=== PATIENT | female | born 1980 | race Caucasian/White ===

== ENCOUNTER 2021-08-25 08:46 | Emergency (ER) | payer OTHER, SELFPAY ==
[2021-08-25 08:53] VITALS: BP 114/78; PULSE 68; RESP 18; TEMP 35.7; O2SAT 98; BMI 49.6
[2021-08-25 09:21] VITALS: BP 128/93; PULSE 72; RESP 16; TEMP 36.6; O2SAT 97
[2021-08-25] MEDS: 0.9 % Sodium Chloride 1,000 ML 999 ML IV ×2 (09:22→12:12)
--- NOTE | 2021-08-25 09:23 | ED_ITS ---
HPI - Nausea/Vomiting/Diarrhea General Chief complaint: Arrhythmia/Palpitations Stated complaint: vomiting Time Seen by Provider: 08/25/21 09:04 Source: patient Mode of arrival: ambulatory Limitations: no limitations History of Present Illness HPI Narrative: 41-year-old female previously healthy here with complaints of vomiting since yesterday morning. No associated abdominal pain, diarrhea, urinary symptoms, fevers, chills. Patient tells me she came in today because she feels like she is dehydrated. She tells me she has had episodes of this in the past. She did recently travel from [place]. Fully vaccinated for COVID. Associated nausea: Yes Related Data Previous Rx's Medication Instructions Recorded ondansetron 4 mg disintegrating 4 mg PO Q6H PRN #10 tab 08/25/21 tablet Allergies Allergy/AdvReac Type Severity Reaction Status Date / Time No Known Allergies Allergy Unverified 08/01/20 16:12 [No Known Allergies*] Review of Systems Review of Systems: Yes all other systems are reviewed and are negative Constitutional: Constitutional: Reports no additional constitutional complaints, Denies body ache(s), Denies chills, Denies fever(s), Denies headache(s) and Denies weakness Eyes: Eyes: Reports no additional eye complaints and Denies change in vision ENT: Reports system reviewed and no additional complaints, except as documented, Denies dizziness, Denies headache(s), Denies nasal congestion, Denies nasal discharge and Denies neck pain Cardiovascular: Cardiovascular: Reports no additional cardiovascular complaints, Denies chest pain, Denies leg edema and Denies dyspnea Respiratory: Respiratory: Reports no additional respiratory complaints, Denies cough and Denies dyspnea Gastrointestinal: Gastrointestinal: Reports no additional gastrointestinal complaints, Denies abdominal pain, Denies diarrhea, Reports nausea and Reports vomiting Genitourinary: Genitourinary: Reports no additional female genitourinary complaints and Denies urinary incontinence Musculoskeletal: Musculoskeletal: Reports no additional musculoskeletal complaints, Denies back pain, Denies arthralgias, Denies joint swelling, Denies neck pain, Denies numbness and Denies tingling Integumentary/Breasts: Skin/Breast: Reports system reviewed and no additional complaints, except as docu and Denies rash Neurologic: Reports system reviewed and no additional complaints, except as documented, Denies Abnormal speech present, Denies dizziness, Denies headache(s), Denies numbness, Denies tingling and Denies weakness PMF Past Medical History Attestation statement: The following information was validated with the patient. Source: old records reviewed and nursing notes reviewed Social History Social History Patient Tobacco Use Status: Tobacco use Unknown Use of substances other than those prescribed or required for medical reasons: No Advance Directives: No Advance Directives Information Provided: No Physical Exam Vital Signs: Vital Signs: Last Vital Signs Temp 98 F 08/25/21 09:21 Pulse 60 08/25/21 12:03 Resp 16 08/25/21 12:03 BP 121/67 08/25/21 12:03 Pulse Ox 98 08/25/21 12:03 Body Mass Index 49.6 Const: General: cooperative, healthy appearing, comfortable and no acute distress Orientation/consciousness: patient oriented x3 Limitations: no limitations HENMT: Head: Yes normal to inspection Ears: hearing grossly normal bilaterally and TM's normal bilaterally General nose exam: Normal external nose present Face and sinus: Yes normal facial exam Mouth: Normal oral and palatal mucosa present Throat: Yes posterior oropharynx normal Eyes: General: appearance normal, both eyes and all related structures Pupils: Equal, round and reactive pupils present Neck: Neck: Yes normal visual inspection Chest: Chest palpation & inspection: normal inspection of the chest Resp: Effort & Inspection: normal respiratory effort Auscultation: clear to auscultation bilaterally Cardio: Rate: regular rate Rhythm: regular rhythm Peripheral pulses: Peripheral pulses 2+ throughout GI: Inspection: Yes normal to inspection Palpation (GI): Soft to palpation and nontender Auscultation: normal bowel sounds Back/Spine/Pelvis: Thoracic/Lumbar Spine: thoracic and lumbar spine normal to inspection Skin: General skin exam: no rashes or lesions noted Neuro: General: patient oriented x3, no focal motor deficits and normal sensation to monofilament Cranial nerves: Yes Equal, round and reactive pupils present Cognition (Neuro): normal cognition Speech: No Abnormal speech present Gait exam (Neuro): Normal gait present Motor exam (neuro): 5/5 motor strength present throughout Extrem: General: Yes normal to inspection, Yes no pedal edema and Yes no calf tenderness Course Course Course Narrative: 41-year-old female here with vomiting for the last 2 days. Feeling dehydrated today requesting IV fluids. History of similar episodes. No associated abdominal pain. Exam is benign Will check labs, UA, COVID screen. Will give 2 L normal saline and reassess. 1510-Labs unremarkable. UA negative. Patient tolerated saltine crackers, fiona miryam with no additional vomiting episodes. Reviewed worrisome signs and symptoms when to return to the emergency department. Comfortable discharge home. MDM - Nausea/Vomiting/Diarrhea Medical Records Attestation: I reviewed the patient's medical records. Lab Data Attestation: I reviewed the patient's lab results. Result diagrams: 08/25/21 09:43 08/25/21 09:43 Labs: Lab Results 08/25/21 08/25/21 08/25/21 Range/Units 09:43 09:43 09:43 WBC 8.2 (4.8-10.8) X10*3/uL RBC 4.61 (4.20-5.50) X10*6/uL Hgb 14.4 (12.0-16.0) g/dl Hct 43.3 (37-47) % MCV 93.9 (80-98) fL MCH 31.2 (27.0-33.0) pg MCHC 33.3 (31.0-35.0) g/dl RDW 14.1 (11.0-16.0) % Plt Count 307 (160-400) X10*3/uL MPV 9.4 (9.4-12.3) fL Immature Gran % (Auto) 0.4 (0.0-0.4) % Neut % (Auto) 68.0 (45-73) % Lymph % (Auto) 25.2 (20-40) % [place] % (Auto) 5.7 (2-11) % Eos % (Auto) 0.2 (0-4) % Baso % (Auto) 0.5 (0-2) % Lymph # (Auto) 2.1 (1.2-4.9) X10*3/uL [place] # (Auto) 0.5 (0.1-1.2) X10*3/uL Eos # (Auto) 0.0 (0.0-0.4) X10*3/uL Baso # (Auto) 0.0 (0.0-0.2) X10*3/uL Abs Immat Gran (auto) 0.03 (0.00-0.03) X10*3/uL Absolute Neuts (auto) 5.6 (2.0-8.3) X10*3/uL Absolute Nucleated RBC 0.000 (0.0-0.012) X10*3/uL Nucleated RBC % (auto) 0.0 (0.0-0.2) /100WBC Sodium 139 (135-145) mmol/L Potassium 3.9 (3.3-5.1) mmol/L Chloride 109 H (96-108) mmol/L Carbon Dioxide 22 (22-29) mmol/L Anion Gap 12 (12-20) BUN 9 (9-16) mg/dL Creatinine 1.02 (0.5-1.4) mg/dL Estim Creat Clear Calc 93.2 Estimated GFR 59 Random Glucose 112 (60-115) mg/dL Calcium 9.1 (8.4-10.2) mg/dL Total Bilirubin 0.7 (0.0-1.0) mg/dL Direct Bilirubin 0.2 (0.0-0.5) mg/dL AST 15 (5-31) U/L ALT 16 (0-31) U/L Alkaline Phosphatase 88 (39-117) U/L Total Protein 7.7 (6.5-8.0) g/dL Albumin 3.9 (3.5-5.0) g/dL Urine Color Urine Appearance Urine pH (5.0-8.0) Ur Specific [place] (1.005-1.025) Urine Protein (NEG-TRACE) MG/DL Urine Glucose (UA) (NEG) MG/DL Urine Ketones (NEG) MG/DL Urine Blood (NEG) Urine Nitrite (NEG) Ur Leukocyte Esterase (NEG) Urine RBC (0) /HPF Urine WBC (0-4) /HPF Ur Squamous Epith Cells /LPF Urine Bacteria /LPF Urine Mucus /LPF COVID-19 (ERASMO) Negative (Negative) COVID-19 Clin Com See Note 08/25/21 Range/Units 11:55 WBC (4.8-10.8) X10*3/uL RBC (4.20-5.50) X10*6/uL Hgb (12.0-16.0) g/dl Hct (37-47) % MCV (80-98) fL MCH (27.0-33.0) pg MCHC (31.0-35.0) g/dl RDW (11.0-16.0) % Plt Count (160-400) X10*3/uL MPV (9.4-12.3) fL Immature Gran % (Auto) (0.0-0.4) % Neut % (Auto) (45-73) % Lymph % (Auto) (20-40) % [place] % (Auto) (2-11) % Eos % (Auto) (0-4) % Baso % (Auto) (0-2) % Lymph # (Auto) (1.2-4.9) X10*3/uL [place] # (Auto) (0.1-1.2) X10*3/uL Eos # (Auto) (0.0-0.4) X10*3/uL Baso # (Auto) (0.0-0.2) X10*3/uL Abs Immat Gran (auto) (0.00-0.03) X10*3/uL Absolute Neuts (auto) (2.0-8.3) X10*3/uL Absolute Nucleated RBC (0.0-0.012) X10*3/uL Nucleated RBC % (auto) (0.0-0.2) /100WBC Sodium (135-145) mmol/L Potassium (3.3-5.1) mmol/L Chloride (96-108) mmol/L Carbon Dioxide (22-29) mmol/L Anion Gap (12-20) BUN (9-16) mg/dL Creatinine (0.5-1.4) mg/dL Estim Creat Clear Calc Estimated GFR Random Glucose (60-115) mg/dL Calcium (8.4-10.2) mg/dL Total Bilirubin (0.0-1.0) mg/dL Direct Bilirubin (0.0-0.5) mg/dL AST (5-31) U/L ALT (0-31) U/L Alkaline Phosphatase (39-117) U/L Total Protein (6.5-8.0) g/dL Albumin (3.5-5.0) g/dL Urine Color YELLOW Urine Appearance HAZY Urine pH 5.5 (5.0-8.0) Ur Specific [place] >= 1.030 H (1.005-1.025) Urine Protein TRACE (NEG-TRACE) MG/DL Urine Glucose (UA) NEG (NEG) MG/DL Urine Ketones 15 (NEG) MG/DL Urine Blood TRACE (NEG) Urine Nitrite NEG (NEG) Ur Leukocyte Esterase TRACE H (NEG) Urine RBC 0-2 (0) /HPF Urine WBC 1-4 (0-4) /HPF Ur Squamous Epith Cells 4+ /LPF Urine Bacteria 3+ /LPF Urine Mucus TRACE /LPF COVID-19 (ERASMO) (Negative) COVID-19 Clin Com Discharge Plan Discharge Clinical Impression: Vomiting Patient Disposition: Home, Self-Care Instructions: Acute Nausea and Vomiting (ED) Additional Instructions: Start with clear liquids then advance diet as tolerated Prescriptions: New ondansetron 4 mg tablet,disintegrating 4 mg PO Q6H PRN (Reason: nausea and vomiting) Qty: 10 RF: 0 Referrals: Physician,Unknown J [Primary Care Provider] - 2 days Interventions: ED Discharge Assessment Last Done: 08/25/21 15:00 Discharge Date/Time: 08/25/21 15:01
[2021-08-25 09:49] LABS: MANUAL DIFF FLAG NO
[2021-08-25 09:51] LABS: Basophils Percent Auto 0.5 % (0-2); Eosinophils Percent Auto 0.2 % (0-4); Hematocrit 43.3 % (37-47); Hemoglobin 14.4 g/dl (12.0-16.0); Imm Gran Abs Auto 0.03 X10*3/uL (0.00-0.03); Imm Gran Pct Auto 0.4 % (0.0-0.4); Lymphocytes Absolute Auto 2.1 X10*3/uL (1.2-4.9); Lymphocytes Percent Auto 25.2 % (20-40); Mean Corpuscular HGB Conc 33.3 g/dl (31.0-35.0); Mean Corpuscular Hemoglobin 31.2 pg (27.0-33.0); Mean Corpuscular Volume 93.9 fL (80-98); Mean Platelet Volume 9.4 fL (9.4-12.3); Monocytes Absolute Auto 0.5 X10*3/uL (0.1-1.2); Monocytes Percent Auto 5.7 % (2-11); Neutrophils Absolute Auto 5.6 X10*3/uL (2.0-8.3); Platelet Count 307 X10*3/uL (160-400); Red Blood Count 4.61 X10*6/uL (4.20-5.50); Red Cell Distribution Width 14.1 % (11.0-16.0); White Blood Count 8.2 X10*3/uL (4.8-10.8)
[2021-08-25 10:07] LABS: Alanine Aminotransferase 16 U/L (0-31); Albumin Level 3.9 g/dL (3.5-5.0); Alkaline Phosphatase 88 U/L (39-117); Anion Gap 12 (12-20); Aspartate Amino Transferase 15 U/L (5-31); Bilirubin Direct 0.2 mg/dL (0.0-0.5); Bilirubin Total 0.7 mg/dL (0.0-1.0); Blood Urea Nitrogen 9 mg/dL (9-16); Calcium 9.1 mg/dL (8.4-10.2); Carbon Dioxide 22 mmol/L (22-29); Chloride 109 mmol/L (96-108); Creatinine Clr Calc Pharmacy 93.2; Estimated Glomerular Filt Rate 59; Glucose Random 112 mg/dL (60-115); Potassium 3.9 mmol/L (3.3-5.1); Sodium 139 mmol/L (135-145); Total Protein 7.7 g/dL (6.5-8.0)
[2021-08-25 10:13] LABS: COVID-19 Test Negative (Negative); IDNOW Serial# 9DD0AD1C
[2021-08-25 12:03] VITALS: BP 121/67; PULSE 60; RESP 16; O2SAT 98
[2021-08-25 12:23] LABS: Appearance Urine HAZY; Color Urine YELLOW; Glucose Urine UA NEG (NEG); Leukocyte Esterase Urine TRACE (NEG); Nitrite Urine NEG (NEG); PH 5.5 (5.0-8.0); Specific Gravity - Urine >= 1.030 (1.005-1.025); UACC Culture Trigger YES; Urine Blood TRACE (NEG); Urine Ketones 15 MG/DL (NEG); Urine Protein TRACE MG/DL (NEG-TRACE)
[2021-08-25 12:32] LABS: Bacteria Urine 3+ /LPF; Mucus Urine TRACE /LPF; RBC Urine 0-2 /HPF (0); Squamous Epithelial Cell Urine 4+ /LPF
== END 2021-08-25 15:01 | disposition home or self-care (01) ==
PROVIDERS: Nurse Practitioner Family; Emergency Provider Emergency Medicine
DX: R11.10 Vomiting, unspecified (principal); Z20.822 Contact with and (suspected) exposure to COVID-19
CPT/HCPCS: 36415; 80048; 80076; 81001; 85025; 87086; 87635; 96360; 99284

== ENCOUNTER 2023-03-22 17:51 | Emergency (ER) | payer OTHER, SELFPAY ==
--- NOTE | ~2023-03-22 | XR_ITS ---
EXAMINATION: PELVIS AND RIGHT FEMUR, LUMBAR SPINE CLINICAL INFORMATION: Pain COMPARISON: None available. TECHNIQUE: 2 views of the pelvis and 2 additional views of the right hip, 3 views of the lumbar spine FINDINGS: The pelvis and hips appear unremarkable. No fractures or significant degenerative changes are present. There is a mild scoliosis of the lumbar spine convex to the right. Surgical clips are present in the right upper quadrant. Minimal degenerative changes are present in the spine with some minimal disc space narrowing at L4-L5 and L5-S1. XR/XR lumbar spine 2-3V IMPRESSION: No acute finding. Mild scoliosis and minimal degenerative changes in the spine.
--- NOTE | ~2023-03-22 | XR_ITS ---
EXAMINATION: PELVIS AND RIGHT FEMUR, LUMBAR SPINE CLINICAL INFORMATION: Pain COMPARISON: None available. TECHNIQUE: 2 views of the pelvis and 2 additional views of the right hip, 3 views of the lumbar spine FINDINGS: The pelvis and hips appear unremarkable. No fractures or significant degenerative changes are present. There is a mild scoliosis of the lumbar spine convex to the right. Surgical clips are present in the right upper quadrant. Minimal degenerative changes are present in the spine with some minimal disc space narrowing at L4-L5 and L5-S1. XR/XR hip RT min 2V IMPRESSION: No acute finding. Mild scoliosis and minimal degenerative changes in the spine.
[2023-03-22 18:32] VITALS: BP 118/81; PULSE 100; RESP 18; TEMP 36.7; O2SAT 96; BMI 48.7
--- NOTE | 2023-03-22 18:36 | ED.GENADULT ---
HPI - General Adult General Chief complaint: Extremity Problem <Bryn Aviles - Last Filed: 03/22/23 18:37> Stated complaint: sciatic pain for a month a half <Bryn Aviles - Last Filed: 03/22/23 18:37> Time Seen by Provider: 03/22/23 20:00 <Bryn Aviles - Last Filed: 03/22/23 18:37> Source: patient and family () <Maximiliano Patterson MD - Last Filed: 03/22/23 20:36> Mode of arrival: ambulatory <Maximiliano Patterson MD - Last Filed: 03/22/23 20:36> Limitations: no limitations <Maximiliano Patterson MD - Last Filed: 03/22/23 20:36> History of Present Illness HPI narrative: 42-year-old female came in for evaluation of low back pain and right hip pain. Symptoms started 2 months ago after a snowstorm and shoveling, pain persist for the past 2 months pain is localized to the low back and right hip area radiated down to the right leg, no weakness, complain of numbness in the whole entire right lower extremities, no urinary incontinence, no stool incontinence. PCP tried muscle relaxant with no relief patient also tried 2 courses of steroids in the past with no relief of symptoms. No fever, no chills, no history of drug abuse. <Maximiliano Patterson MD - Last Filed: 03/22/23 20:36> Related Data Home medications: Previous Rx's Medication Instructions Recorded ondansetron 4 mg disintegrating 4 mg PO Q6H PRN nausea and 08/25/21 tablet vomiting #10 tabs cyclobenzaprine 10 mg tablet 10 mg PO TID PRN muscle spasm #20 03/22/23 tabs oxycodone 5 mg tablet 5 mg PO Q8H PRN pain #20 tabs 03/22/23 prednisone 20 mg tablet 20 mg PO BID #10 tabs 03/22/23 <Bryn Aviles - Last Filed: 03/22/23 18:37> Allergies/adverse reactions: Allergies Allergy/AdvReac Type Severity Reaction Status Date / Time erythromycin base Allergy Rash Verified 03/22/23 18:36 <Bryn Aviles - Last Filed: 03/22/23 18:37> Review of Systems Review of Systems: All other systems are reviewed and are negative Constitutional: Reports as per HPI and Reports no additional constitutional complaints Eyes: Reports as per HPI and Reports no additional eye complaints Reports system reviewed and no additional complaints, except as documented Cardiovascular: Reports as per HPI and Reports no additional cardiovascular complaints Respiratory: Reports as per HPI and Reports no additional respiratory complaints Gastrointestinal: Reports as per HPI and Reports no additional gastrointestinal complaints Genitourinary: Reports no additional female genitourinary complaints Musculoskeletal: Reports no additional musculoskeletal complaints Skin/Breast: Reports system reviewed and no additional complaints, except as docu Psychiatric: Reports no additional psychiatric complaints Endocrine: Reports no additional endocrine complaints Hematologic/Lymphatic: Reports no additional hematologic/lymphatic complaints Allergic/Immunologic: Reports no additional allergic/immunologic complaints Reports system reviewed and no additional complaints, except as documented and Reports Abnormal speech present <Maximiliano Patterson MD - Last Filed: 03/22/23 20:36> [facility] Social History Social History: Social History Patient Tobacco Use Status: Tobacco use Unknown Advance Directives: No Advance Directives Information Provided: No <Bryn Aviles - Last Filed: 03/22/23 18:37> Physical Exam ED Vital Signs: Vital Signs - 24 hr 03/22/23 18:32 Temperature 98.1 F Pulse Rate 100 Respiratory Rate 18 Blood Pressure 118/81 Pulse Oximetry 96 Oxygen Delivery Method Room Air BMI result Body Mass Index 48.7 <Bryn Aviles - Last Filed: 03/22/23 18:37> Vital Signs - 24 hr 03/22/23 18:32 Temperature 98.1 F Pulse Rate 100 Respiratory Rate 18 Blood Pressure 118/81 Pulse Oximetry 96 Oxygen Delivery Method Room Air BMI result Body Mass Index 48.7 Vital signs have been reviewed as appeared to be correct. Blood pressure normal. Heart rate normal. Respiration rate normal. Temperature normal. Oxygen saturation normal. <Maximiliano Patterson MD - Last Filed: 03/22/23 20:36> Appearance: Alert. Oriented X3. No acute distress. Head: Normal external exam. Normocephalic. Atraumatic. No Higgins signs noted. No raccoon eyes noted Eyes: PERRLA. EOMI. Conjunctiva and sclera normal. Eyelids normal. ENT: TM's Normal. Pharynx normal. Uvula midline. Moist mucous membranes. No trismus noted. No drooling noted. No muffled voice noted. Neck: Normal inspection. Neck supple. FROM. No adenopathy. Thyroid Normal. No meningeal signs. No neck mass noted. CVS: Normal heart rate and rhythm. Heart sound normal. No murmurs noted. Pulses normal throughout. Respiratory: No respiratory distress. Painless inspiration. Breath sounds normal. No wheezes/rales/rhonchi noted. Chest nontender. No accessory muscle usage noted or decreased air movement noted. Abdomen: Soft and nontender. Bowel sounds normal in all 4 quadrants. No distention noted. No organomegaly noted. No visible injury noted. Back: No CVA tenderness. Full range of motion noted. Skin: Skin warm and dry. Normal skin color. Normal skin turgor. No rashes/lesions/lacerations noted. Extremities: No lower extremity edema. Extremities exhibit normal range of motion. Extremities nontender. Neuro: Oriented X 3. Cranial nerve exam: II-XII are grossly intact No motor deficit. No sensory deficit. Reflexes normal, perianal sensation intact. <Maximiliano Patterson MD - Last Filed: 03/22/23 20:36> Course Course Course Narrative: 42-year-old female presents for evaluation of her back/right hip pain that radiates down her right leg and ankle. Pain started 2 months ago after shoveling. Denies weakness but endorses numbness <Bryn Aviles - Last Filed: 03/22/23 18:37> Reevaluation(s) Reevaluation #1: Lumbar radiculopathy with no neurological deficit or urinary incontinence to suggest cauda equina syndrome. As discussed with the patient will start on short course of prednisone, analgesia, muscle relaxant, and follow-up with PCP to consider outpatient MRI. <Maximiliano Patterson MD - Last Filed: 03/22/23 20:36> Time: 20:30 <Maximiliano Patterson MD - Last Filed: 03/22/23 20:36> Medical Decision Making Differential Diagnosis Differential Diagnoses: The differential diagnosis associated with the presentation includes (Myofascial back pain, lumbar sprain, compression fracture, lumbar radiculopathy, cauda equina.) <Maximiliano Patterson MD - Last Filed: 03/22/23 20:36> Independent Interpretation I performed an independent interpretation of an: Plain X-Ray (Lumbar/right hip x-ray: No acute finding, mild scoliosis.) <Maximiliano Patterson MD - Last Filed: 03/22/23 20:36> Radiology Impression Discussion of test interpretation with radiology: I have reviewed the radiologist's reading. <Maximiliano Patterson MD - Last Filed: 03/22/23 20:36> Discharge Plan Discharge Clinical Impression: Lumbar radiculopathy, right <Bryn Aviles - Last Filed: 03/22/23 18:37> Patient Disposition: Home, Self-Care <Bryn Aviles - Last Filed: 03/22/23 18:37> Instructions: Lumbar Radiculopathy (ED) <Bryn Aviles - Last Filed: 03/22/23 18:37> Additional Instructions: Follow-up with your primary doctor, seek immediate medical attention if any urinary or stool incontinence, losing sensation in the anal area. <Bryn Aviles - Last Filed: 03/22/23 18:37> Prescriptions: New oxycodone 5 mg tablet 5 mg PO Q8H PRN (Reason: pain) Qty: 20 0RF Rx Instructions: Partial Fill upon patient request. prednisone 20 mg tablet 20 mg PO BID Qty: 10 0RF cyclobenzaprine 10 mg tablet 10 mg PO TID PRN (Reason: muscle spasm) Qty: 20 0RF No Action ondansetron 4 mg tablet,disintegrating 4 mg PO Q6H PRN (Reason: nausea and vomiting) Qty: 10 0RF <Bryn Aviles - Last Filed: 03/22/23 18:37>
[2023-03-22] MEDS: oxyCODONE HCl Immed Release 5 MG TABLET PO (20:35)
== END 2023-03-22 20:40 | disposition home or self-care (01) ==
PROVIDERS: Emergency Provider Emergency Medicine
DX: M54.16 Radiculopathy, lumbar region (principal); M25.551 Pain in right hip
CPT/HCPCS: 72100; 73502; 99283